=== PATIENT | female | born 2000 | race Caucasian/White ===

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

== ENCOUNTER 2023-04-29 22:20 | Emergency (ER) | payer MEDICAID, SELFPAY ==
[2023-04-29 22:21] VITALS: BP 137/83; PULSE 91; RESP 20; TEMP 36.9; O2SAT 100; BMI 29.0
[2023-04-29 22:28] VITALS: BP 137/83; PULSE 93; O2SAT 97
--- NOTE | 2023-04-29 22:32 | HMH.EDGENADL ---
Discharge Plan Disposition Patient Disposition: Home, Self-Care Condition: Good Prescriptions Prescriptions: New ondansetron 4 mg tablet,disintegrating 4 mg PO Q6H PRN (Reason: nausea and vomiting) Qty: 14 0RF No Action amoxicillin 500 MG capsule 500 mg PO TID Qty: 30 0RF prednisone 10 MG tablet 10 mg PO BID 5 Days Qty: 10 0RF azithromycin 250 MG tablet 250 mg PO DIRECTED Qty: 6 0RF Rx Instructions: Take two (2) tablets on day #1, then one (1) tablet day #2 thru #5 guaifenesin 600 MG tablet extended release 12hr 1 - 2 tab PO Q12H PRN (Reason: Congestion) Qty: 20 0RF Referrals Follow up/Referrals: Provider,Referral, [Primary Care Provider] - See instructions Activity Restrictions/Add. Instructions Additional Instructions/Restrictions: You were evaluated in the ER. Your labs are reassuring and you are appropriate for discharge. Take the prescribed Zofran as directed if needed for nausea and vomiting. Drink plenty of water. Make an appointment with your primary care physician for reevaluation in 2 to 3 days. Return to the ER with any new, worsening, or otherwise concerning symptoms. Clinical Impressions Clinical Impression: Nausea vomiting and diarrhea Stand Alone Forms Stand Alone Forms: Work/School Release Instructions Patient Instructions: DI for Acute Abdominal Pain Discharge ED Provider: Lynne William General Adult HPI <Lynne William MD - Last Filed: 04/29/23 22:34> General Chief complaint: Abdominal Pain Stated complaint: vomiting nausea diarrhea suspected food poisoning Time Seen by Provider: 04/29/23 22:24 History of Present Illness HPI narrative: Patient is a previously healthy 23-year-old female presents today with her boyfriend both of whom have the same symptoms nausea vomiting diarrhea. This began on after they ate the same meal of sushi they have been having intermittent nausea vomiting since that time they believe they have food poisoning. No blood in the vomit or the stool. No fevers or chills. There is some abdominal cramping associated with this. But nonfocal. Denies any marijuana smoking or any other drug use or alcohol use. Related Data Previous Rx's Medication Instructions Recorded amoxicillin 500 mg capsule 500 mg PO TID #30 caps 07/18/19 azithromycin 250 mg tablet 250 mg PO DIRECTED #6 tabs 11/14/20 guaifenesin 600 mg tablet, 1 - 2 tab PO Q12H PRN Congestion 11/14/20 extended release 12 hr ##20 prednisone 10 mg tablet 10 mg PO BID 5 days #10 tabs 11/14/20 ondansetron 4 mg disintegrating 4 mg PO Q6H PRN nausea and 04/30/23 tablet vomiting #14 tabs Allergies Allergy/AdvReac Type Severity Reaction Status Date / Time No Known Allergies Allergy Verified 07/18/19 18:31 PFS <Lynne William MD - Last Filed: 04/29/23 22:34> [facility] Disclaimer: The information contained in this section may have been updated after the patient was seen, as this information can be updated by other users. Social History (Updated 04/29/23 @ 22:34 by Lynne William MD) Smoking Status: Unknown if ever smoked alcohol intake: never current occupational status: other Travel in the last 8 weeks: None <Lynne William MD - Last Filed: 04/29/23 22:34> ROS Obtained: Yes All systems reviewed & no additional complaints except as documented Physical Exam <Lynne William MD - Last Filed: 04/29/23 22:34> General General appearance: alert Respiratory Respiratory exam: Present normal lung sounds bilaterally Cardiovascular Cardiovascular exam: Present tachycardia and other (Extremities with delayed capillary refill) Abdominal Exam Abdominal exam: Present soft and tenderness (Diffusely tender but no rebound or guarding or rigidity nonfocal) Neurological Exam Neurological exam: Present alert Medical Decision Making <Lynne William MD - Last Filed: 04/29/23 22:34> Juan Carlos Inquiry Pt receiving controlled substance: No Vital Signs: 04/29/23 22:21 04/29/23 22:28 Temperature 98.4 F Temperature Source Oral Pulse Rate 93 H Pulse Rate [Left] 91 H Respiratory Rate 20 Blood Pressure 137/83 Blood Pressure [Right Arm] 137/83 Blood Pressure Mean [Right Arm] 101 Blood Pressure Source [Right Arm] Automatic Cuff Blood Pressure Position [Right Arm] Sitting 02 Sat by Pulse Oximetry 100 97 Oxygen Delivery Method Room Air Lab Data Lab Results 04/29/23 22:38: WBC 6.1, RBC 4.93, Hgb 14.7, Hct 43.7, MCV 88.7, MCH 29.9, MCHC 33.7, RDW 12.7, Plt Count 228, MPV 7.8, Neut % (Auto) 60.7, Lymph % (Auto) 32.2, [place] % (Auto) 4.4, Eos % (Auto) 1.8, Baso % (Auto) 0.9, Neut # (Auto) 3.7, Lymph # (Auto) 2.0, [place] # (Auto) 0.3, Eos # (Auto) 0.1, Baso # (Auto) 0.1, Sodium 137, Potassium 4.1, Chloride 105, Carbon Dioxide 26, Anion Gap 10.1, BUN 11, Creatinine 0.70, Estimated Creat Clear 162, Estimated GFR 105, Est GFR ( Amer) 127, Glucose 77, Calcium 9.4, Total Bilirubin 0.4, AST 33, ALT 26, Alkaline Phosphatase 56, Total Protein 7.2, Albumin 4.3, Globulin 2.9, Albumin/Globulin Ratio 1.5, Lipase 87, Serum HCG, Qual Negative 04/29/23 22:38 04/29/23 22:38 Orders (Tests/Meds): ED MEDICATIONS Discontinued Medications Generic Name Dose Route Start Last Admin Trade Name Freq PRN Reason Stop Dose Admin Lactated Ringer's 1,000 mls @ 999 mls/hr 04/29/23 22:30 04/29/23 22:58 Lactated Ringer's 1000 Ml Bag IV 04/29/23 23:30 999 mls/hr .Q1H1M DIA Administration Ketorolac Tromethamine 15 mg 04/29/23 22:30 04/29/23 22:57 Ketorolac 30mg/Ml Vial IV 04/29/23 22:31 15 mg ONCE ONE Administration Ondansetron HCl 4 mg 04/29/23 22:30 04/29/23 22:57 Ondansetron 4mg/2ml Vial IV 04/29/23 22:31 4 mg ONCE ONE Administration ORDERS Category Date Time Status CBC w/Auto Diff [Complete Blood Count Auto Diff] Stat Lab 04/29/23 22:38 Completed CMP [Comprehensive Metabolic Panel] Stat Lab 04/29/23 22:38 Completed HCG Qualitative, Serum Stat Lab 04/29/23 22:38 Completed Lipase Stat Lab 04/29/23 22:38 Completed Medical Decision Narrative: Patient is a 23-year-old female present today with nausea vomiting diarrhea also accompanied by her boyfriend who has similar symptoms both of which started after a meal of sushi is most likely food poisoning but possibly viral. Will give IV fluids nausea medicine Toradol check basic blood work and reassess. Exam is not concerning for surgical pathology at the moment. <Nic Sesay MD - Last Filed: 04/30/23 00:53> Vital Signs: 04/29/23 22:21 04/29/23 22:28 Temperature 98.4 F Temperature Source Oral Pulse Rate 93 H Pulse Rate [Left] 91 H Respiratory Rate 20 Blood Pressure 137/83 Blood Pressure [Right Arm] 137/83 Blood Pressure Mean [Right Arm] 101 Blood Pressure Source [Right Arm] Automatic Cuff Blood Pressure Position [Right Arm] Sitting 02 Sat by Pulse Oximetry 100 97 Oxygen Delivery Method Room Air Lab Data Lab Results 04/29/23 22:38: WBC 6.1, RBC 4.93, Hgb 14.7, Hct 43.7, MCV 88.7, MCH 29.9, MCHC 33.7, RDW 12.7, Plt Count 228, MPV 7.8, Neut % (Auto) 60.7, Lymph % (Auto) 32.2, [place] % (Auto) 4.4, Eos % (Auto) 1.8, Baso % (Auto) 0.9, Neut # (Auto) 3.7, Lymph # (Auto) 2.0, [place] # (Auto) 0.3, Eos # (Auto) 0.1, Baso # (Auto) 0.1, Sodium 137, Potassium 4.1, Chloride 105, Carbon Dioxide 26, Anion Gap 10.1, BUN 11, Creatinine 0.70, Estimated Creat Clear 162, Estimated GFR 105, Est GFR ( Amer) 127, Glucose 77, Calcium 9.4, Total Bilirubin 0.4, AST 33, ALT 26, Alkaline Phosphatase 56, Total Protein 7.2, Albumin 4.3, Globulin 2.9, Albumin/Globulin Ratio 1.5, Lipase 87, Serum HCG, Qual Negative Orders (Tests/Meds): ED MEDICATIONS Discontinued Medications Generic Name Dose Route Start Last Admin Trade Name Freq PRN Reason Stop Dose Admin Lactated Ringer's 1,000 mls @ 999 mls/hr 04/29/23 22:30 04/29/23 22:58 Lactated Ringer's 1000 Ml Bag IV 04/29/23 23:30 999 mls/hr .Q1H1M DIA Administration Ketorolac Tromethamine 15 mg 04/29/23 22:30 04/29/23 22:57 Ketorolac 30mg/Ml Vial IV 04/29/23 22:31 15 mg ONCE ONE Administration Ondansetron HCl 4 mg 04/29/23 22:30 04/29/23 22:57 Ondansetron 4mg/2ml Vial IV 04/29/23 22:31 4 mg ONCE ONE Administration ORDERS Category Date Time Status CBC w/Auto Diff [Complete Blood Count Auto Diff] Stat Lab 04/29/23 22:38 Completed CMP [Comprehensive Metabolic Panel] Stat Lab 04/29/23 22:38 Completed HCG Qualitative, Serum Stat Lab 04/29/23 22:38 Completed Lipase Stat Lab 04/29/23 22:38 Completed Medical Decision Narrative: Patient is a 23-year-old female present today with nausea vomiting diarrhea also accompanied by her boyfriend who has similar symptoms both of which started after a meal of sushi is most likely food poisoning but possibly viral. Will give IV fluids nausea medicine Toradol check basic blood work and reassess. Exam is not concerning for surgical pathology at the moment. Sesay: I assumed care of this patient at [address] William. Upon my assumption of care patient states her symptoms are improving. I have reviewed her labs which are all within normal limits. I agree with the workup performed by primary provider. On reassessment patient has had improvement of symptoms and has been able to tolerate oral intake. I prescribed Zofran for continued outpatient symptomatic management. She is appropriate for discharge at this time. Patient was given instructions on symptomatic management, follow up instructions, and return precautions for the emergency department. Patient indicated understanding and was discharged in stable condition. Critical Care <Lynne William MD - Last Filed: 04/29/23 22:34> Critical Care Time Critical Care Time: No
[2023-04-29 22:50] LABS: Basophils # 0.1 K/mm3 (0-0.2); Basophils % 0.9 % (0.1-2.0); Eosinophils # 0.1 K/mm3 (0.0-0.4); Eosinophils % 1.8 % (0.1-12.0); Hematocrit 43.7 % (37.0-47.0); Hemoglobin 14.7 g/dL (12.2-16.2); Lymphocytes % 32.2 % (10-50); Mean Corpuscular HGB Conc 33.7 g/dL (31.8-35.4); Mean Corpuscular Hemoglobin 29.9 pg (27.0-31.2); Mean Corpuscular Volume 88.7 fl (81-99); Mean Platelet Volume 7.8 fl (7.4-10.4); Monocytes # 0.3 K/mm3 (0.1-1.0); Monocytes % 4.4 % (1.7-9.3); Neutrophils # 3.7 K/mm3 (1.8-7.8); Neutrophils % 60.7 % (37.0-80.0); Platelet Count 228 K/mm3 (142-424); Red Blood Count 4.93 M/mm3 (4.20-5.40); Red Cell Distribution Width 12.7 % (11.5-17.5); White Blood Count 6.1 K/mm3 (4.8-10.8)
[2023-04-29] MEDS: ONDANSETRON 4MG/2ML VIAL 4 MG IV (22:57)
[2023-04-29] MEDS: KETOROLAC 30MG/ML VIAL 15 MG IV (22:57)
[2023-04-29] MEDS: LACTATED RINGERS 1000ML 1,000 ML 999 ML IV (22:58)
[2023-04-29 23:25] LABS: Alanine Aminotransferase 26 U/L (12-78); Albumin Level 4.3 g/dl (3.5-5.0); Albumin/Globulin Ratio 1.5 (1.1-1.8); Alkaline Phosphatase 56 U/L (38-126); Anion Gap 10.1 mEq/L (5-15); Aspartate Amino Transferase 33 U/L (14-36); Bilirubin,Total 0.4 mg/dl (0.2-1.3); Blood Urea Nitrogen 11 mg/dl (7-17); Calcium 9.4 mg/dl (8.4-10.2); Carbon Dioxide 26 mmol/L (22.0-30.0); Chloride 105 mmol/L (98-107); Creatinine Clearance Estimated 162 mL/min (50-200); Estimated Glomerular Filt Rate 105 ml/min (>60); GFR (African American) 127 ML/MIN (>60); Globulin 2.9 g/dL (1.3-3.2); Glucose 77 mg/dl (74-100); Lipase 87 U/L (23-300); Potassium 4.1 mmoL/L (3.5-5.1); Sodium 137 mmol/L (136-145); Total Protein,Serum 7.2 g/dl (6.3-8.2)
[2023-04-29 23:26] LABS: HCG Qualitative, Serum Negative (Negative)
[2023-04-30 00:01] VITALS: BP 110/74; PULSE 78; RESP 18; O2SAT 100
[2023-04-30 00:56] VITALS: BP 110/74; PULSE 78; RESP 18; TEMP 36.7; O2SAT 100
== END 2023-04-30 01:04 | disposition home or self-care (01) ==
PROVIDERS: Emergency Provider Student in an Organized Health Care Education/Training Program
DX: R11.2 Nausea with vomiting, unspecified (principal); R19.7 Diarrhea, unspecified; R10.84 Generalized abdominal pain
CPT/HCPCS: 80053; 83690; 84703; 85025; 96361; 96374; 96375; 99285; J2405